=== PATIENT | female | born 1980 | race Caucasian/White ===

== ENCOUNTER 2019-09-03 19:19 | Emergency (ER) | payer OTHER ==
[~2019-09-03] VITALS: Ht 167.6 cm; Wt 72.6 kg
[2019-09-03] MEDS ORDERED: PANT40TA4 PO (19:30)
[2019-09-03] MEDS ORDERED: OMEG1CAP40 PO (19:30)
[2019-09-03] MEDS ORDERED: CHOL500050 PO (19:30)
[2019-09-03] MEDS ORDERED: CALC-903 PO (19:30)
[2019-09-03] MEDS ORDERED: ASPI81TA31 PO (19:30)
[2019-09-03] MEDS ORDERED: FOLI1TAB16 PO (19:30)
--- NOTE | 2019-09-03 19:44 | NUR ---
Dr. Levy at bedside for MSE.
--- NOTE | 2019-09-03 19:56 | NUR ---
Patient discharged to home in stable conditon. Written and verbal after care instructions given. Patient verbalizes understanding of instructions. Walked out of ER with no distress noted.
== END 2019-09-03 20:06 | disposition home or self-care (01) ==
LOC: ER 19:21
DX: S49.91XA Unspecified injury of right shoulder and upper arm, initial encounter (principal); K21.9 Gastro-esophageal reflux disease without esophagitis; Z79.82 Long term (current) use of aspirin; Z79.899 Other long term (current) drug therapy; X58.XXXA Exposure to other specified factors, initial encounter; Y93.89 Activity, other specified; Y92.89 Other specified places as the place of occurrence of the external cause; Y99.8 Other external cause status
CPT/HCPCS: A4663